=== PATIENT | female | born 1940 | race Caucasian/White ===

== ENCOUNTER 2020-11-15 18:36 | Inpatient (IN) | payer OTHER ==
[2020-11-15] MEDS ORDERED: ACETAMINOPHEN 500 MG TAB PO PRN (20:12)
[2020-11-15] MEDS ORDERED: ALBUTEROL INHALER 60 PUFF/8 GM IH PRN (20:18)
[2020-11-15] MEDS ORDERED: BENZONATATE 100 MG CAP PO PRN (20:18)
[2020-11-15] MEDS: METOPROLOL TAR 50 MG TAB PO SCH (21:29)
[2020-11-15] MEDS: METHYLPREDNISOLONE 40 MG INJ IV SCH (21:30)
[2020-11-15] MEDS: ALPRAZOLAM 0.25 MG TABLET PO PRN (21:30)
[2020-11-15 22:26] VITALS: BMI 29.5
[2020-11-15] MEDS ORDERED: ENOXAPARIN 80 MG/0.8 ML SQ SCH (23:00)
[2020-11-15] MEDS: MORPHINE 4 MG/ML SYR IV PRN (23:00)
--- NOTE | 2020-11-16 02:06 | P.HP ---
Certification for Inpatient Patient admitted to: Inpatient With expected LOS: >2 Midnights Patient will require the following post-hospital care: None Practitioner: I am a practitioner with admitting privileges, knowledge of patient current condition, hospital course, and medical plan of care. Services: Services provided to patient in accordance with Admission requirements found in Title 42 Section 412.3 of the Code of Federal Regulations Patient History Date of Service: 11/15/20 Reason for admission: COVID-19 pneumonia; atrial fibrillation; non ST-elevation [place] History of Present Illness: Patient is an 80-year-old female who was transferred from [facility] with COVID-19 pneumonia. Patient has gone into atrial fibrillation. Patient also with elevated troponin. They spoke with Cardiology and agreement to transfer patient to our hospital. Patient will continue on medication for rate control and continue with anti coagulation. At this time, will continue with steroids and supportive care with cough medication. Patient appears to be confused. Her baseline is that she is oriented to person place and time. Will need to get records from the hospital to see what her mentation has been altered. Allergies No Known Allergies Allergy (Verified 11/15/20 19:52) Home Medications: Amlodipine [Norvasc] 10 mg PO DAILY 11/15/20 Arformoterol Tartrate [Brovana] 15 mcg IH BID 11/15/20 Atorvastatin Calcium [Lipitor] 40 mg PO BEDTIME 11/15/20 Budesonide [Pulmicort] 2 puff IH BID 11/15/20 Hydrocodone 5/APAP 325 [[place] 5/325] 1 tab PO Q12HR PRN 11/15/20 Ipratropium/Albuterol Sulfate [Combivent Respimat 20-100 Mcg] 1 puff QID PRN 11/15/20 Levothyroxine Sodium [Synthroid] 75 mcg PO DAILY 11/15/20 Metoprolol Tartrate 50 mg PO DAILY 11/15/20 Montelukast [Singulair] 10 mg PO DAILY 11/15/20 Pantoprazole [Protonix Tab] 40 mg PO DAILY 11/15/20 Pregabalin [Lyrica] 100 mg PO TID 11/15/20 Rivaroxaban [Xarelto] 10 mg PO DAILY 11/15/20 Umeclidinium [place] [Incruse Ellipta] 1 puff DAILY 11/15/20 - Past Medical/Surgical History -: Hypertension -: COPD -: Hypothyroidism -: Heart Failure -: Chronic back pain -: Covid -: Lung Cancer Past Surgical History: Unable to obtain - Family History Father Family History: Reviewed- Non-Contributory - Social History Smoking Status: Unknown if ever smoked Alcohol use: No CD- Drugs: No Place of Residence: Home Review of Systems 10-point ROS is otherwise unremarkable Physical Examination - Vital Signs Temperature: 96.8 F Blood Pressure: 131/64 Pulse: 71 Respirations: 16 Pulse Ox (%): 100 - Physical Exam General: Alert, In no apparent distress, Confused HEENT: Atraumatic, PERRLA, Mucous membr. moist/pink, EOMI, Sclerae nonicteric Neck: Supple, 2+ carotid pulse no bruit, No LAD, Without JVD or thyroid abnormality Respiratory: Clear to auscultation bilaterally, Normal air movement Cardiovascular: Regular rate/rhythm, Normal S1 S2, Systolic murmur Gastrointestinal: Normal bowel sounds, Soft and benign, Non-distended, No tenderness Musculoskeletal: No clubbing, No swelling, No tenderness Integumentary: No rashes Neurological: Sensation intact, Cranial nerves 3-12 intact, Abnormal gait, Abnormal speech, Abnormal strength - Studies Laboratory Data (last 24 hrs) 11/15/20 21:21: Troponin I 0.51 H* Assessment & Plan - Problems (Diagnosis) (1) Altered mental status Current Visit: Yes Status: Acute (2) Pneumonia due to COVID-19 virus Current Visit: Yes Status: Acute (3) Hypoxemia Current Visit: Yes Status: Acute (4) Atrial fibrillation with rapid ventricular response Current Visit: Yes Status: Acute (5) Non-STEMI (non-ST elevated myocardial infarction) Current Visit: Yes Status: Acute (6) History of CHF (congestive heart failure) Current Visit: Yes Status: Acute (7) Hypothyroidism Current Visit: Yes Status: Acute (8) History of lung cancer Current Visit: Yes Status: Acute - Plan 1. Continue with IV steroids 2. Monitor inflammatory markers 3. Repeat chest x-ray 4. O2 per protocol 5. Pulmonary and cardiology consultation 6. Continue cardiac meds and medication for rate control 7. CT of the brain 8. GI and DVT prophylaxis Discharge Plan: Home Plan to discharge in: Greater than 2 days - Advance Directives Does patient have a Living Will: No Does patient have a Durable POA for Healthcare: No - Code Status/Comfort Care Code Status Assessed: Yes Code Status: Full Code Critical Care: No Time Spent Managing PTS Care (In Minutes): 45
[2020-11-16] MEDS: MORPHINE 4 MG/ML SYR IV PRN ×2 (04:35→21:17)
[2020-11-16] MEDS ORDERED: LORazepam 2 MG/ML VIAL IV ONE ×3 (05:09→19:00)
[2020-11-16 06:31] LABS: C-Reactive Protein 11.7 mg/L (<3.00); Ferritin 242.9 ng/mL (8-388); Potassium 3.2 mmol/L (3.5-5.1); Troponin I 0.37 ng/mL (0.0-0.045)
[2020-11-16 06:34] LABS: Absolute Lymphocytes (CBC) 0.3 K/uL (0.7-4.9); Basophils % 0.1 % (0-1.3); Hematocrit 38.2 % (36.0-45.0); Lymphocytes % 3.3 % (15.3-44.8); MPV 11.4 fL (7.6-11.3); RBC Red Blood Cell Count 4.34 M/uL (3.86-4.86)
[2020-11-16] MEDS: METOPROLOL TAR 50 MG TAB PO SCH (07:36)
[2020-11-16] MEDS: ASPIRIN EC 81 MG TAB PO SCH (07:36)
[2020-11-16] MEDS: METHYLPREDNISOLONE 40 MG INJ IV SCH ×2 (07:37→19:29)
[2020-11-16 08:39] LABS: Blood Morphology Comment NOT SEEN (NOT SEEN); Platelet Estimate ADEQ; White Blood Cell Scan OK (OK)
[2020-11-16] MEDS ORDERED: ENOXAPARIN 80 MG/0.8 ML SQ SCH (09:00)
--- NOTE | 2020-11-16 10:07 | RAD REPORT ---
EXAM DESCRIPTION: RAD - Chest Single View - 11/16/2020 7:03 am CLINICAL HISTORY: pneumonia Chest pain. COMPARISON: Chest Pa And Lat (2 Views) dated 03/21/2018; Chest Pa And Lat (2 Views) dated 10/02/2016; CHEST PA AND LAT 2 VIEW dated 05/16/2012; CHEST SINGLE VIEW dated 09/14/2011 FINDINGS: Portable technique limits examination quality. Moderate elevation of the right hemidiaphragm noted, chronic. Moderate patchy bilateral alveolar lung opacities are seen likely representing bilateral pneumonia. Fullness in the right peritracheal strip e region is likely attributable portable technique and mild rotation of the patient, however CT chest followup would be useful for further evaluation. Cardiac size is normal.
[2020-11-16] MEDS ORDERED: WATER FOR INJ,STERILE 10 ML IM PRN (11:05)
--- NOTE | 2020-11-16 11:13 | P.PN ---
Subjective Date of Service: 11/16/20 Chief Complaint: COVID-19 pneumonia; atrial fibrillation; non ST-elevation [place] Subjective: Worsening (Patient is very agitated and trying to get out of bed.) Review of Systems is unable to be obtained Physical Examination - Vital Signs Temperature: 97 F Blood Pressure: 128/103 Pulse: 83 Respirations: 18 Pulse Ox (%): 99 - Physical Exam General: Moderate distress, Delirious HEENT: Atraumatic, PERRLA, EOMI Neck: Supple, JVD not distended Respiratory: Clear to auscultation bilaterally, Normal air movement Cardiovascular: Regular rate/rhythm, Normal S1 S2 Gastrointestinal: Normal bowel sounds, No tenderness Musculoskeletal: No tenderness Integumentary: No rashes Neurological: Normal speech, Normal tone, Normal affect Lymphatics: No axilla or inguinal lymphadenopathy - Studies Laboratory Data (last 24 hrs) 11/16/20 05:40: Sodium Cancelled, Potassium Cancelled, BUN Cancelled, Creatinine Cancelled, Glucose Cancelled 11/16/20 05:40: Sodium 146 H, Potassium 3.2 L, BUN 28 H, Creatinine 0.76, Glucose 153 H, Troponin I 0.37 H, Triglycerides 159 H, Cholesterol 103, HDL Cholesterol 52, Cholesterol/HDL Ratio 1.98 11/16/20 05:40: WBC 9.70, Hgb 12.4, Hct 38.2, Plt Count 192 11/15/20 21:21: Troponin I 0.51 H* Assessment & Plan - Problems (Diagnosis) (1) Altered mental status Current Visit: Yes Status: Acute Plan: Patient was too agitated for the CT. Weather this is covid encephalopathy or a CVA. Will start her on geodan and haldol. Get the CT scan. If there is no acute process in her brain. We can anticoagulate. Then standard covid treatm ent. Qualifiers: Altered mental status type: delirium Qualified Code(s): R41.0 - Disorientation, unspecified (2) Atrial fibrillation with rapid ventricular response Current Visit: Yes Status: Acute Plan: Will restart her metoprolol. She may have had a mild leak of troponins which are trending downward. Will restart her xarelto after the CT. Make sure she is not having any acute bleeds in her brain. (3) Non-STEMI (non-ST elevated myocardial infarction) Current Visit: Yes Status: Acute Plan: Patient has decreasing troponins. Considering this is a patient with Heart failure. 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 However will wait for cardiology's input. (4) Pneumonia due to COVID-19 virus Current Visit: Yes Status: Acute Plan: Continue steroids and oxygen. Discharge Plan: Home Plan to discharge in: Greater than 2 days - Code Status/Comfort Care Code Status Assessed: No Physician Review: Patient Assessed, Agree with Above Assessment and Plan Critical Care: No Time Spent Managing Pts Care (In Minutes): 25
--- NOTE | 2020-11-16 11:14 | P.CNS ---
Date of Consult: 11/16/20 Reason for Consult: Coronavirus pneumonia Chief Complaint: COVID-19 pneumonia; atrial fibrillation; non ST-elevation [place] History of Present Illness: Patient is 80 years of age patient is 80 years of age transferred from [facility] with coronavirus pneumonia also developed A. fib elevated troponins planes of cough appears to be confused agitated Allergies No Known Allergies Allergy (Verified 11/15/20 19:52) Home Medications: Amlodipine [Norvasc] 10 mg PO DAILY 11/15/20 Arformoterol Tartrate [Brovana] 15 mcg IH BID 11/15/20 Atorvastatin Calcium [Lipitor] 40 mg PO BEDTIME 11/15/20 Budesonide [Pulmicort] 2 puff IH BID 11/15/20 Hydrocodone 5/APAP 325 [[place] 5/325] 1 tab PO Q12HR PRN 11/15/20 Ipratropium/Albuterol Sulfate [Combivent Respimat 20-100 Mcg] 1 puff QID PRN 11/15/20 Levothyroxine Sodium [Synthroid] 75 mcg PO DAILY 11/15/20 Metoprolol Tartrate 50 mg PO DAILY 11/15/20 Montelukast [Singulair] 10 mg PO DAILY 11/15/20 Pantoprazole [Protonix Tab] 40 mg PO DAILY 11/15/20 Pregabalin [Lyrica] 100 mg PO TID 11/15/20 Rivaroxaban [Xarelto] 10 mg PO DAILY 11/15/20 Umeclidinium [place] [Incruse Ellipta] 1 puff DAILY 11/15/20 - Past Medical/Surgical History -: Hypertension -: COPD -: Hypothyroidism -: Heart Failure -: Chronic back pain -: Covid -: Lung Cancer - Family History Father Family History: Reviewed- Non-Contributory - Social History Alcohol use: No CD- Drugs: No Place of Residence: Home Review of Systems is unable to be obtained Physical Examination Temp Pulse Resp BP Pulse Ox 97 F 83 18 128/103 H 99 11/16/20 08:00 11/16/20 08:00 11/16/20 08:00 11/16/20 08:00 11/16/20 08:00 General: Delirious Laboratory Data (last 24 hrs) 11/16/20 05:40: Sodium Cancelled, Potassium Cancelled, BUN Cancelled, Creatinine Cancelled, Glucose Cancelled 11/16/20 05:40: Sodium 146 H, Potassium 3.2 L, BUN 28 H, Creatinine 0.76, Glucose 153 H, Troponin I 0.37 H, Triglycerides 159 H, Cholesterol 103, HDL Cholesterol 52, Cholesterol/HDL Ratio 1.98 11/16/20 05:40: WBC 9.70, Hgb 12.4, Hct 38.2, Plt Count 192 11/15/20 21:21: Troponin I 0.51 H* - Problems (1) Pneumonia due to COVID-19 virus Current Visit: Yes Status: Acute Plan: Patient is 80 years of age admitted patient is 80 years of age transferred from [facility] with coronavirus pneumonia altered mental status agitation delirious probably has underlying coronavirus encephalopathy in addition patient also has EKG changes elevated troponin most likely elevated troponin vital signs are stable currently on 2 L of nasal cannula oxygen patient CRP is low will patient CRP is low will not qualify for Barcitinib
[2020-11-16] MEDS: HALOPERIDOL LACT 5 MG/ML INJ IV PRN ×2 (11:19→19:28)
--- NOTE | 2020-11-16 13:33 | RAD REPORT ---
EXAM DESCRIPTION: CT - Head Brain Wo Cont - 11/16/2020 1:13 pm CLINICAL HISTORY: AMS Headache, drowsiness COMPARISON: HEAD BRAIN W O CONTRAST dated 09/14/2011 TECHNIQUE: All CT scans are performed using dose optimization technique as appropriate and may inclu de automated exposure control or mA/KV adjustment according to patient size. FINDINGS: No intracranial hemorrhage, hydrocephalus or extra-axial fluid collection.Mild periventric ular chronic microvascular ischemic changes.No areas of brain edema or evidence of midline shift. The paranasal sinuses and mastoids are clear. The calvarium is intact. IMPRESSION: No acute intracranial abnormality.
[2020-11-16] MEDS: PREGABALIN 50 MG CAP PO SCH ×2 (14:00→19:28)
--- NOTE | 2020-11-16 16:04 | CON ---
Date of Consultation: 11/16/2020 Reason For Consultation: Elevated troponin. History Of Present Illness: This 80-year-old female transferred from [facility] for COVID pneum onia, and she had atrial fibrillation with rapid ventricular response at 1 point. Troponin was mildl y elevated over there, and I was contacted by the hospitalist and accepted to consult on the patient. She apparently has significant confusion and very poor historian, unable to get a good history from her. Most part of this information is from the patient's chart. Past Medical History: Hypertension, COPD, hypothyroidism, congestive heart failure, lung cancer. Medications: Refer reconciliation sheet for detailed list. Allergies: NO KNOWN DRUG ALLERGIES. Family History: Negative for premature coronary artery disease. Social History: Unknown. Review of Systems: All systems reviewed and they were negative except as mentioned in the HPI. Physical Examination: Vital Signs: Temperature is 96.8, pulse 92, breathing at 18, blood pressure 148/78, saturating 98%. General: She is an elderly female, in no apparent distress. Head and Neck: Pupils are equal, reactive to light. Intact eye movements. No JVD. No cervical lym phadenopathy. Neck: Supple. Thyroid is not enlarged. Lungs: Rhonchi bilaterally. No accessory muscle use or muscle retraction. Heart: Irregularly irregular. No extra sounds. Abdomen: Soft, nontender. Bowel sounds positive. No organomegaly. No masses or hernia. No rigidi ty or rebound. Extremities: No clubbing, cyanosis. Intact pulses. Skin: No rashes. Neurologic: Alert, but confused. No focal deficits appreciated. Lymph Nodes: No cervical or axillary lymphadenopathy. Investigations: Troponin is 0.51, then 0.37. Creatinine 0.76. White blood cell count is 9.7, hemog lobin 12.4. EKG without acute specific abnormalities. Impression And Recommendation: Elevated troponin, probably due to demand ischemia. However, I recom mend anticoagulation with Lovenox therapeutic dose and baby aspirin 81 mg and obtain echocardiogram o n Wednesday, and once the COVID condition clears completely, then Lexiscan stress test to further evalua te. Thank you for the consult. /BERNABE Voice ID: [id number] Report ID: [id number]
[2020-11-16] MEDS: ATORVASTATIN 40 MG TAB PO SCH (19:28)
[2020-11-16] MEDS: RIVAROXABAN 10 MG TABLET PO SCH (19:28)
[2020-11-16] MEDS: ALPRAZOLAM 0.25 MG TABLET PO PRN (21:19)
[2020-11-17] MEDS: HALOPERIDOL LACT 5 MG/ML INJ IV PRN ×3 (00:15→17:13)
[2020-11-17] MEDS: MORPHINE 4 MG/ML SYR IV PRN ×2 (02:00→22:10)
[2020-11-17] MEDS: LEVOTHYROXINE SOD 0.075 MG TAB PO SCH (08:43)
[2020-11-17] MEDS: ASPIRIN EC 81 MG TAB PO SCH (08:43)
[2020-11-17] MEDS: RIVAROXABAN 10 MG TABLET PO SCH (08:43)
[2020-11-17] MEDS: METOPROLOL TAR 50 MG TAB PO SCH (08:43)
[2020-11-17] MEDS: METHYLPREDNISOLONE 40 MG INJ IV SCH ×2 (08:43→22:10)
[2020-11-17] MEDS: PANTOPRAZOLE 40MG TABLET PO SCH (08:43)
[2020-11-17] MEDS: PREGABALIN 50 MG CAP PO SCH ×3 (08:43→22:11)
--- NOTE | 2020-11-17 10:43 | P.PN ---
Subjective Date of Service: 11/17/20 Chief Complaint: COVID-19 pneumonia; atrial fibrillation; non ST-elevation [place] Subjective: No new changes Review of Systems is unable to be obtained Physical Examination - Vital Signs Temperature: 97.1 F Blood Pressure: 154/90 Pulse: 97 Respirations: 18 Pulse Ox (%): 99 - Physical Exam General: Alert, In no apparent distress HEENT: Atraumatic, PERRLA, EOMI Neck: Supple, JVD not distended Respiratory: Clear to auscultation bilaterally, Normal air movement Cardiovascular: Regular rate/rhythm, Normal S1 S2 Gastrointestinal: Normal bowel sounds, No tenderness Musculoskeletal: No tenderness Integumentary: No rashes Neurological: Normal speech, Normal tone, Normal affect Lymphatics: No axilla or inguinal lymphadenopathy Assessment & Plan - Problems (Diagnosis) (1) Altered mental status Current Visit: Yes Status: Acute Plan: Patient was too agitated for the CT. Weather this is covid encephalopathy or a CVA. Will start her on geodan and haldol. Get the CT scan. If there is no acute process in her brain. We can anticoagulate. Then standard covid treatment. 11/17 Patient is still altered. continue supportive Qualifiers: Altered mental status type: delirium Qualified Code(s): R41.0 - Disorientation, unspecified (2) Atrial fibrillation with rapid ventricular response Current Visit: Yes Status: Acute Plan: Will restart her metoprolol. She may have had a mild leak of troponins which are trending downward. Will restart her xarelto after the CT. Make sure she is not having any acute bleeds in her brain. (3) Non-STEMI (non-ST elevated myocardial infarction) Current Visit: Yes Status: Acute Plan: Patient has decreasing troponins. Considering this is a patient with Heart failure. May be able to medically manage rather than taking her to the builder's labourer. However will wait for cardiology's input. (4) Pneumonia due to COVID-19 virus Current Visit: Yes Status: Acute Plan: Continue steroids and oxygen. Discharge Plan: Home - Code Status/Comfort Care Code Status Assessed: No Physician Review: Patient Assessed, Agree with Above Assessment and Plan Critical Care: No Time Spent Managing Pts Care (In Minutes): 20
[2020-11-17] MEDS: ZIPRASIDONE MESYLA 20 MG/VIAL IM PRN (18:17)
[2020-11-17] MEDS: ATORVASTATIN 40 MG TAB PO SCH (21:00)
[2020-11-18] MEDS: HALOPERIDOL LACT 5 MG/ML INJ IV PRN ×2 (00:02→19:57)
[2020-11-18] MEDS: MORPHINE 4 MG/ML SYR IV PRN (04:31)
[2020-11-18 06:04] LABS: Absolute Lymphocytes (CBC) 0.2 K/uL (0.7-4.9); Basophils % 0.6 % (0-1.3); Hematocrit 26.4 % (36.0-45.0); Lymphocytes % 1.3 % (15.3-44.8); MPV 11.5 fL (7.6-11.3)
[2020-11-18 06:19] LABS: Potassium 3.5 mmol/L (3.5-5.1)
--- NOTE | 2020-11-18 06:27 | P.PN ---
Subjective Date of Service: 11/18/20 Chief Complaint: COVID-19 pneumonia; atrial fibrillation; non ST-elevation [place] Subjective: Other (Patient remains altered.) Physical Examination - Vital Signs Temperature: 96.9 F Blood Pressure: 125/57 Pulse: 115 Respirations: 20 Pulse Ox (%): 95 - Studies Laboratory Data (last 24 hrs) 11/18/20 05:47: Sodium 149 H, Potassium 3.5, BUN 46 H, Creatinine 0.82, Glucose 164 H 11/18/20 05:47: WBC 16.80 H D, Hgb 8.6 L D, Hct 26.4 L D, Plt Count 197 Assessment & Plan Discharge Plan: Home Plan to discharge in: Greater than 2 days Physician Review Additional Text: COVID: Positive CT head: COMPARISON: HEAD BRAIN W O CONTRAST dated 09/14/2011 TECHNIQUE: All CT scans are performed using dose optimization technique as appropriate and may include automated exposure control or mA/KV adjustment according to patient size. FINDINGS: No intracranial hemorrhage, hydrocephalus or extra-axial fluid collection.Mild periventricular chronic microvascular ischemic changes.No areas of brain edema or evidence of midline shift. The paranasal sinuses and mastoids are clear. The calvarium is intact. IMPRESSION: No acute intracranial abnormality. CXR: COMPARISON: Chest Pa And Lat (2 Views) dated 03/21/2018; Chest Pa And Lat (2 Views) dated 10/02/2016; CHEST PA AND LAT 2 VIEW dated 05/16/2012; CHEST SINGLE VIEW dated 09/14/2011 FINDINGS: Portable technique limits examination quality. Moderate elevation of the right hemidiaphragm noted, chronic. Moderate patchy bilateral alveolar lung opacities are seen likely representing bilateral pneumonia. Fullness in the right peritracheal stripe region is likely attributable portable technique and mild rotation of the patient, however CT chest followup would be useful for further evaluation. Cardiac size is normal. Physical Exam: GENERAL: Patient remains altered. Not oriented to time and place. VITAL SIGNS: Reviewed HEENT: Neck supple LUNGS: Clear to auscultation. No crackles or wheezes are heard. Currently on room air HEART: A. fib rate controlled ABDOMEN: Soft, nontender, and nondistended. Positive bowel sounds. No hepatosplenomegaly was noted. EXTREMITIES: Without any cyanosis, clubbing, rash, lesions or peripheral edema. NEUROLOGIC: Patient remains with altered mental status SKIN: Normal color, turgor and temperature. No ulcerations or rashes noted. Impression: Acute encephalopathy suspect Covid encephalopathy complicated with Covid pneumonia with hypoxia Atrial fibrillation with RVR Elevated troponin likely ischemic demand Hypertension Hypothyroidism History of lung cancer Hypernatremia Plan: Acute encephalopathy suspect Covid encephalopathy complicated with Covid pneumonia with hypoxia: Patient remains altered at this time. Continue with medication for agitation. Patient failed swallow evaluation. Will keep the patient n.p.o. at this time. Speech to evaluate swallowing. Cardiology has evaluated patient. Elevated troponin likely ischemic demand. Will obtain echoc ardiogram to further evaluate. Once the patient is medically stable consider inpatient versus outpatient cardiac stress test. Will monitor closely. Pulmonology continues with IV steroids and Covid pneumonia treatment. Patient on room air. Atrial fibrillation with RVR: Overall stable. Continue with metoprolol. Patient on Lovenox. Elevated troponin likely ischemic demand: Patient seen and evaluated by cardiology. Patient to get echocardiogram. Consider outpatient versus inpatient cardiac stress test once medically stable. Hypertension: Continue metoprolol Hypothyroidism: Continue medication History of lung cancer: Overall stable. Hypernatremia: Will start D5W. Will monitor and adjust IV fluids. CODE STATUS: Full code DVT prophylaxis: Lovenox Advanced care [id number] minutes: Need to find appropriate contact information to family. Tried the 2 numbers on file without any success. Will have nurse look out for family. Time Spent Managing Pts Care (In Minutes): 55
[2020-11-18 06:45] LABS: Blood Morphology Comment NOT SEEN (NOT SEEN); Platelet Estimate ADEQ; White Blood Cell Scan OK (OK)
[2020-11-18] MEDS: METHYLPREDNISOLONE 40 MG INJ IV SCH ×2 (08:22→19:58)
[2020-11-18] MEDS: RIVAROXABAN 10 MG TABLET PO SCH (08:22)
[2020-11-18] MEDS: LEVOTHYROXINE SOD 0.075 MG TAB PO SCH (08:26)
[2020-11-18] MEDS: PANTOPRAZOLE 40MG TABLET PO SCH (08:27)
[2020-11-18] MEDS: ASPIRIN EC 81 MG TAB PO SCH (08:27)
[2020-11-18] MEDS: METOPROLOL TAR 50 MG TAB PO SCH (08:27)
[2020-11-18] MEDS: PREGABALIN 50 MG CAP PO SCH (08:28)
[2020-11-18 09:15] LABS: Hematocrit 27.5 % (36.0-45.0)
--- NOTE | 2020-11-18 12:29 | P.PN ---
Subjective Date of Service: 11/18/20 Chief Complaint: COVID-19 pneumonia; atrial fibrillation; non ST-elevation [place] No change patient is delirious Review of Systems is unable to be obtained Physical Examination - Vital Signs Temperature: 97.6 F Blood Pressure: 138/62 Pulse: 109 Respirations: 24 Pulse Ox (%): 92 - Physical Exam General: Unresponsive - Studies Laboratory Data (last 24 hrs) 11/18/20 08:52: Hgb 9.0 L, Hct 27.5 L 11/18/20 05:47: Sodium 149 H, Potassium 3.5, BUN 46 H, Creatinine 0.82, Glucose 164 H 11/18/20 05:47: WBC 16.80 H D, Hgb 8.6 L D, Hct 26.4 L D, Plt Count 197 Assessment & Plan - Problems (Diagnosis) (1) Pneumonia due to COVID-19 virus Current Visit: Yes Status: Acute Plan: Patient is Covid encephalopathy not eating and drinking much we will try a Dobbhoff tube she is able to keep it in for 24 hours we will start tube feeds patient has hyponatremia abnormal renal function start on high-dose thiamine saturations satisfactory Physician Review: Patient Assessed, Agree with Above Assessment and Plan
[2020-11-18] MEDS ORDERED: SODIUM CHLORIDE 0.9% 10ML INJ IV PRN (13:00)
[2020-11-18] MEDS: D5W 1,000 ML IV SCH (14:02)
[2020-11-18] MEDS: THIAMINE 200 MG/2 ML INJ IVP SCH ×2 (14:02→19:58)
--- NOTE | 2020-11-18 16:22 | ECHO ---
HEIGHT: 5 ft 0 in WEIGHT: 151 lb 0 oz DATE OF STUDY: 11/18/[address]: Heladio Hurtado MD 2-DIMENSIONAL: YES M.MODE: YES DOPPLER: YES COLOR FLOW: YES TDS: YES PORTABLE: NO DEFINITY: NO BUBBLE STUDY: NO DIAGNOSIS: ELEVATED TROPONIN CARDIAC HISTORY: CATHERIZATION: SURGERY: PROSTHETIC VALVE: PACEMAKER: MEASUREMENTS (cm) DIASTOLIC (NORMALS) SYSTOLIC (NORMALS) IVSd (0.6-1.2) LA Diam (1.9-4.0) LVEF 55-60% LVIDd (3.5-5.7) LVIDs (2.0-3.5) %FS % LVPWd (0.6-1.2) Ao Diam (2.0-3.7) 2 DIMENSIONAL ASSESSMENT: RIGHT ATRIUM: LEFT ATRIUM: RIGHT VENTRICLE: LEFT VENTRICLE: TRICUSPID VALVE: MITRAL VALVE: PULMONIC VALVE: AORTIC VALVE: PERICARDIAL EFFUSION: AORTIC ROOT: LEFT VENTRICULAR WALL MOTION: LIMITED STUDY. DOPPLER/COLOR FLOW: COMMENTS: VERY LIMITED STUDY. OVERALL LEFT VENTRICULAR EJECTION FRACTION APPEARS NORMAL 55-60%. MILD TRICUSPID AND MITRAL REGURGITATION. TECHNOLOGIST: Tamara FORREST
[2020-11-18] MEDS: ENOXAPARIN 40 MG/0.4 ML SQ SCH (16:39)
[2020-11-18] MEDS: CEFTRIAXONE 1 GM/NS 50 ML 1 GM/50 ML BAG IV SCH (17:06)
[2020-11-18 19:30] LABS: Urine Appearance CLEAR (Clear); Urine Bilirubin NEGATIVE (Negative); Urine Blood 1+ (Negative); Urine Color YELLOW (Yellow); Urine Glucose TRACE (Negative); Urine Protein 1+ (Negative); Urine Urobilinogen 0.2 mg/dL (0.2-1.0)
[2020-11-18 19:47] LABS: Urine Microscopic Reflex ORDER UMIC
[2020-11-18] MEDS: ATORVASTATIN 40 MG TAB PO SCH (19:58)
[2020-11-18 20:02] LABS: Urine Bacteria <20 /HPF (<20); Urine RBC <5 /HPF (NONE SEEN)
[2020-11-19] MEDS: D5W 1,000 ML IV SCH ×2 (02:20→12:10)
[2020-11-19 03:53] LABS: Absolute Lymphocytes (CBC) 0.2 K/uL (0.7-4.9); Basophils % 0.2 % (0-1.3); Hematocrit 25.1 % (36.0-45.0); Lymphocytes % 1.1 % (15.3-44.8); MPV 11.9 fL (7.6-11.3); RBC Red Blood Cell Count 2.83 M/uL (3.86-4.86)
[2020-11-19 04:37] LABS: ALT/SGPT 56 U/L (12-78); AST/SGOT 64 U/L (15-37); Alkaline Phosphatase 58 U/L (45-117); BUN Blood Urea Nitrogen 31 mg/dL (7-18); Bicarbonate 37 mmol/L (21-32); Bilirubin Total 1.1 mg/dL (0.2-1.0); Ferritin 247.4 ng/mL (8-388); Glucose Level 199 mg/dL (74-106); Magnesium 2.3 mg/dL (1.8-2.4); Protein, Total 6.2 g/dL (6.4-8.2); Sodium Level 146 mmol/L (136-145)
[2020-11-19 04:38] LABS: Potassium 2.6 mmol/L (3.5-5.1)
[2020-11-19] MEDS: KCL 20 MEQ/100 mL IVPB 20 MEQ/100 ML BAG IV SCH ×2 (05:11→08:59)
[2020-11-19] MEDS: LEVOTHYROXINE SODIUM 100 MCG VIAL IV SCH (06:00)
--- NOTE | 2020-11-19 06:27 | P.PN ---
Subjective Date of Service: 11/19/20 Chief Complaint: COVID-19 pneumonia; atrial fibrillation; non ST-elevation [place] Subjective: Other (Less confusion noted. Patient on room air.) Physical Examination - Vital Signs Temperature: 97.9 F Blood Pressure: 147/63 Pulse: 101 Respirations: 20 Pulse Ox (%): 91 - Studies Laboratory Data (last 24 hrs) 11/19/20 : Sodium Cancelled, Potassium Cancelled, BUN Cancelled, Creatinine Cancelled, Glucose Cancelled 11/19/20 03:19: Sodium 146 H, Potassium 2.6 L*, BUN 31 H, Creatinine 0.61, Glucose 199 H, Magnesium 2.3, Total Bilirubin 1.1 H, AST 64 H, ALT 56, Alkaline Phosphatase 58 11/19/20 03:19: WBC 14.20 H D, Hgb 8.1 L, Hct 25.1 L, Plt Count 196 11/18/20 08:52: Hgb 9.0 L, Hct 27.5 L 11/18/20 05:47: WBC 16.80 H D, Hgb 8.6 L D, Hct 26.4 L D, Plt Count 197 Microbiology Data (last 24 hrs): 11/18/20 17:34 Blood - Blood Anaerobic Blood Culture - Final 11/18/20 17:42 Blood - Blood Anaerobic Blood Culture - Final Assessment & Plan Discharge Plan: Home Plan to discharge in: Greater than 2 days Physician Review Additional Text: COVID: Positive CT head: COMPARISON: HEAD BRAIN W O CONTRAST dated 09/14/2011 TECHNIQUE: All CT scans are performed using dose optimization technique as appropriate and may include automated exposure control or mA/KV adjustment according to patient size. FINDINGS: No intracranial hemorrhage, hydrocephalus or extra-axial fluid collection.Mild periventricular chronic microvascular ischemic changes.No areas of brain edema or evidence of midline shift. The paranasal sinuses and mastoids are clear. The calvarium is intact. IMPRESSION: No acute intracranial abnormality. CXR: COMPARISON: Chest Pa And Lat (2 Views) dated 03/21/2018; Chest Pa And Lat (2 Views) dated 10/02/2016; CHEST PA AND LAT 2 VIEW dated 05/16/2012; CHEST SINGLE VIEW dated 09/14/2011 FINDINGS: Portable technique limits examination quality. Moderate elevation of the right hemidiaphragm noted, chronic. Moderate patchy bilateral alveolar lung opacities are seen likely representing bilateral pneumonia. Fullness in the right peritracheal stripe region is likely attributable portable technique and mild rotation of the patient, however CT chest followup would be useful for further evaluation. Cardiac size is normal. Breast US: COMPARISON: None FINDINGS: Retroareolar and four-quadrant whole right breast sonography performed. The examination was limited. The patient was unable to fully cooperate with the examination. In the retroareolar region of the right breast a 4-5 centimeter area of heterogeneous mostly hypoechoic tissue is seen. This is not a typical appearance for the retroareolar tissues. A clearly defined mass or drainable fluid collection was not seen. Currently the findings are nonspecific. Infectious/inflammatory process is most likely. This does not currently appear to be a drainable collection. Breast malignant etiology cannot be excluded. IMPRESSION: Nonspecific 4-5 cm area of heterogeneous hypoechoic tissue retroareolar right breast. Infectious/inflammatory etiology is favored. Breast malignancy etiology cannot be excluded. A drainable fluid collection is not currently identified. Follow up CXR 11/19/2020: COMPARISON: Portable November 16 TECHNIQUE: AP portable chest image was obtained 11/19/2020 5:58 am . FINDINGS: Is been partial clearing of the airspace infiltrates seen on the prior examination. Minimal infiltrate remains. Right hemidiaphragm is still elevated. Mediastinum is distorted by rotation and is not accurately evaluated. Heart and vasculature are normal. No measurable pleural effusion and no pneumothorax. No acute bony abnormality seen. No acute aortic findings suspected. IMPRESSION: Partial clearing of the pneumonia findings since November 16. ECHO: MEASUREMENTS (cm) DIASTOLIC (NORMALS) SYSTOLIC (NORMALS) IVSd (0.6-1.2) LA Diam (1.9- 4.0) LVEF 55-60% LVIDd (3.5-5.7) LVIDs (2.0-3.5) %FS % LVPWd (0.6-1.2) Ao Diam (2.0-3.7) 2 DIMENSIONAL ASSESSMENT: RIGHT ATRIUM: LEFT ATRIUM: RIGHT VENTRICLE: LEFT VENTRICLE: TRICUSPID VALVE: MITRAL VALVE: PULMONIC VALVE: AORTIC VALVE: PERICARDIAL EFFUSION: AORTIC ROOT: LEFT VENTRICULAR WALL MOTION: LIMITED STUDY. DOPPLER/COLOR FLOW: COMMENTS: VERY LIMITED STUDY. OVERALL LEFT VENTRICULAR EJECTION FRACTION APPEARS NORMAL 55-60%. MILD TRICUSPID AND MITRAL REGURGITATION. Physical Exam: GENERAL: Patient remains altered. Not oriented to time and place. VITAL SIGNS: Reviewed HEENT: Neck supple LUNGS: Clear to auscultation. No crackles or wheezes are heard. Currently on room air HEART: A. fib rate controlled ABDOMEN: Soft, nontender, and nondistended. Positive bowel sounds. No hepatosplenomegaly was noted. EXTREMITIES: Without any cyanosis, clubbing, rash, lesions or peripheral edema. NEUROLOGIC: Patient remains with altered mental status SKIN: Normal color, turgor and temperature. No ulcerations or rashes noted. Impression: Acute encephalopathy suspect Covid encephalopathy complicated with Covid pneumonia with hypoxia Atrial fibrillation with RVR Elevated troponin likely ischemic demand Hypertension Hypothyroidism History of lung cancer Hypernatremia Right breast ecchymosis Leukocytosis likely related to above Acute anemia etiology unknown Plan: Acute encephalopathy suspect Covid encephalopathy complicated with Covid pneumonia with hypoxia: Patient appears to be less confused today. Currently on room air. Patient remains with atrial fibrillation. Patient failed swallow study as the patient still had altered mental status changes. Patient still high risk for aspiration. Speech recommends n.p.o. at this time. Will provide Dobbhoff to provide nutrition. Continue IV fluids. Continue IV steroids and treatment. Blood and urine culture obtained. Patient on IV Rocephin due to leukocytosis. Continue to monitor and reassess. Aspiration precaution in place. Patient also had some ecchymosis to the right breast. Ultrasound showed nonspecific 4 x 5 cm heterogeneous hypoechoic tissue to the right breast. No drainable fluid noted. We will monitor this closely. Await recommendations by pulmonology and cardiology. Atrial fibrillation with RVR: Overall stable. Continue with metoprolol. Patient on Lovenox. Elevated troponin likely ischemic demand: Patient seen and evaluated by card iology. Patient to get echocardiogram. Consider outpatient versus inpatient cardiac stress test once medically stable. Hypertension: Continue metoprolol Hypothyroidism: Continue levothyroxine History of lung cancer: Overall stable. Hypernatremia: Continue D5W. Will monitor and adjust IV fluids. Right breast ecchymosis: Ultrasound shows nonspecific 4 x 5 cm heterogeneous hypoechoic tissue to the right breast. No drainable fluid noted. Monitor this closely. Leukocytosis likely related to above: Continue with above plan of care. Patient on Rocephin to cover for opportunistic infection. Blood and urine culture obtained. Acute anemia etiology unknown: We will monitor this closely. Recheck hemoglobin later today. Check iron and B12 studies. CODE STATUS: Full code DVT prophylaxis: Lovenox Advanced care [id number] minutes: Will discuss with family on plan of care. Time Spent Managing Pts Care (In Minutes): 55
--- NOTE | 2020-11-19 06:55 | RAD REPORT ---
EXAM DESCRIPTION: RAD - Chest Single View - 11/19/2020 5:58 am CLINICAL HISTORY: Follow-up Covidpneumonia COMPARISON: Portable November 16 TECHNIQUE: AP portable chest image was obtained 11/19/2020 5:58 am . FINDINGS: Is been partial clearing of the airspace infiltrates seen on the prior examination. Minima l infiltrate remains. Right hemidiaphragm is still elevated. Mediastinum is distorted by rotation and is not accurately evaluated. Heart and vasculature are normal. No measurable pleural effusion and no pneumothorax. No acute bony abnormality seen. No acute aortic findings suspected. IMPRESSION: Partial clearing of the pneumonia findings since November 16.
[2020-11-19] MEDS: CEFTRIAXONE 1 GM/NS 50 ML 1 GM/50 ML BAG IV SCH (08:59)
[2020-11-19] MEDS: METOPROLOL TAR 50 MG TAB PO SCH (09:00)
[2020-11-19] MEDS: PANTOPRAZOLE 40 MG INJ IVP SCH (09:00)
[2020-11-19] MEDS: THIAMINE 200 MG/2 ML INJ IVP SCH ×2 (09:00→19:41)
[2020-11-19] MEDS: ASPIRIN EC 81 MG TAB PO SCH (09:00)
[2020-11-19] MEDS ORDERED: FOLIC ACID 5 MG/ML VIAL IVP SCH (09:00)
[2020-11-19] MEDS: METHYLPREDNISOLONE 40 MG INJ IV SCH ×2 (09:00→19:41)
--- NOTE | 2020-11-19 09:03 | RAD REPORT ---
EXAM DESCRIPTION: US - BREAST/AXILLA, COMPLETE - 11/19/2020 8:50 am CLINICAL HISTORY: Right breast pain, ecchymosis, nipple inversion COMPARISON: None FINDINGS: Retroareolar and four-quadrant whole right breast sonography performed. The examination wa s limited. The patient was unable to fully cooperate with the examination. In the retroareolar region of the right breast a 4-5 centimeter area of heterogeneous mostly hypoecho ic tissue is seen. This is not a typical appearance for the retroareolar tissues. A clearly defined m ass or drainable fluid collection was not seen. Currently the findings are nonspecific. Infectious/inflammatory process is most likely. This does not currently appear to be a drainable collection. Breast malignant etiology cannot be excluded. IMPRESSION: Nonspecific 4-5 cm area of heterogeneous hypoechoic tissue retroareolar right breast. Infectious/inflammatory etiology is favored. Breast malignancy etiology cannot be excluded. A drainable fluid collection is not currently identified.
[2020-11-19 09:16] LABS: BUN Blood Urea Nitrogen 30 mg/dL (7-18); Bicarbonate 37 mmol/L (21-32); Glucose Level 166 mg/dL (74-106); Sodium Level 147 mmol/L (136-145)
[2020-11-19] MEDS: FOLIC ACID 1 MG in NA CHLORIDE 0.9% 50 ML IV SCH (09:23)
[2020-11-19] MEDS ORDERED: FUROSEMIDE 20 MG/ 2ML VIAL IV ONE (11:02)
[2020-11-19] MEDS ORDERED: JEVITY 1.2 CAL LIQUID 1,000 ML BOT RTH SCH (12:00)
[2020-11-19 12:06] LABS: Arterial Blood Carboxyhemoglob 1.3 % (0-1.5); Blood Gas Oxyhemoglobin 90.1 % (94-97); Blood O2 Saturation 92.2 % (92-98.5)
[2020-11-19 13:58] LABS: Hematocrit 33.7 % (36.0-45.0)
--- NOTE | 2020-11-19 14:02 | RAD REPORT ---
EXAM DESCRIPTION: RAD - Chest Single View - 11/19/2020 1:50 pm CLINICAL HISTORY: Follow up COVID, Suspect CHF COMPARISON: November 19 0508 hour examination TECHNIQUE: AP portable chest image was obtained 11/19/2020 1:50 pm . FINDINGS: No new tube or line identifiable. Cardiac leads overlie the chest. Rotation continues to e xaggerate the mediastinal silhouette. Right hemidiaphragm elevation is still present. No new or progressive lung parenchymal process. Heart size and vasculature are in the normal range. N o significant edema changes are seen in the lung [place]. No measurable pleural effusion and no pneumothorax. No acute bony abnormality seen. No acute aortic findings suspected. IMPRESSION: No new or progressive cardiopulmonary finding. Examination is stable from the study performed earlier in the day.
[2020-11-19 14:37] LABS: Transferrin 231 mg/dL (200-360)
[2020-11-19] MEDS: ENOXAPARIN 40 MG/0.4 ML SQ SCH (16:32)
--- NOTE | 2020-11-19 19:06 | RAD REPORT ---
EXAM DESCRIPTION: RAD - Abdomen 1 View (KUB) - 11/19/2020 7:00 pm CLINICAL HISTORY: Device placement Dobhoff tube placement FINDINGS: The tip of a Dobhoff tube lies within the gastric fundus
[2020-11-20] MEDS ORDERED: LORazepam 2 MG/ML VIAL IV ONE (01:36)
[2020-11-20 04:23] LABS: Absolute Lymphocytes (CBC) 0.2 K/uL (0.7-4.9); Basophils % 0.6 % (0-1.3); Hematocrit 25.1 % (36.0-45.0); Lymphocytes % 1.8 % (15.3-44.8); MPV 11.9 fL (7.6-11.3); RBC Red Blood Cell Count 2.83 M/uL (3.86-4.86)
[2020-11-20 04:45] LABS: Bilirubin Total 1.1 mg/dL (0.2-1.0); C-Reactive Protein 18.7 mg/L (<3.00); Ferritin 249.8 ng/mL (8-388); Magnesium 2.3 mg/dL (1.8-2.4); Protein, Total 6.1 g/dL (6.4-8.2)
[2020-11-20 04:48] LABS: Potassium 2.8 mmol/L (3.5-5.1)
[2020-11-20] MEDS: KCL 20 MEQ/100 mL IVPB 20 MEQ/100 ML BAG IV SCH ×3 (05:11→10:04)
[2020-11-20] MEDS: LEVOTHYROXINE SODIUM 100 MCG VIAL IV SCH (05:51)
[2020-11-20] MEDS: METOPROLOL TARTRATE 5 MG/5 ML INJ IV PRN (06:16)
--- NOTE | 2020-11-20 06:19 | P.PN ---
Subjective Date of Service: 11/20/20 Chief Complaint: COVID-19 pneumonia; atrial fibrillation; non ST-elevation [place] Subjective: Other (Patient on BiPAP.) Physical Examination - Vital Signs Temperature: 98 F Blood Pressure: 167/95 Pulse: 111 Respirations: 18 Pulse Ox (%): 92 - Studies Laboratory Data (last 24 hrs) 11/20/20 : Potassium Cancelled 11/20/20 07:00: Potassium Cancelled 11/20/20 03:33: Sodium 147 H, Potassium 2.8 L*, BUN 32 H, Creatinine 0.68, Glucose 182 H, Magnesium 2.3, Total Bilirubin 1.1 H, AST 55 H, ALT 56, Alkaline Phosphatase 63 11/20/20 03:33: WBC 13.50 H, Hgb 8.3 L D, Hct 25.1 L D, Plt Count 211 11/19/20 13:19: Hgb 10.9 L D, Hct 33.7 L D 11/19/20 08:06: Sodium 147 H, Potassium 3.0 L, BUN 30 H, Creatinine 0.62, Glucose 166 H Microbiology Data (last 24 hrs): 11/18/20 17:34 Blood - Blood Anaerobic Blood Culture - Final 11/18/20 17:42 Blood - Blood Anaerobic Blood Culture - Final Assessment & Plan Discharge Plan: Home Plan to discharge in: Greater than 2 days Physician Review Additional Text: COVID: Positive CT head: COMPARISON: HEAD BRAIN W O CONTRAST dated 09/14/2011 TECHNIQUE: All CT scans are performed using dose optimization technique as appr opriate and may include automated exposure control or mA/KV adjustment according to patient size. FINDINGS: No intracranial hemorrhage, hydrocephalus or extra-axial fluid collection.Mild periventricular chronic microvascular ischemic changes.No areas of brain edema or evidence of midline shift. The paranasal sinuses and mastoids are clear. The calvarium is intact. IMPRESSION: No acute intracranial abnormality. CXR: COMPARISON: Chest Pa And Lat (2 Views) dated 03/21/2018; Chest Pa And Lat (2 Views) dated 10/02/2016; CHEST PA AND LAT 2 VIEW dated 05/16/2012; CHEST SINGLE VIEW dated 09/14/2011 FINDINGS: Portable technique limits examination quality. Moderate elevation of the right hemidiaphragm noted, chronic. Moderate patchy bilateral alveolar lung opacities are seen likely representing bilateral pneumonia. Fullness in the right peritracheal stripe region is likely attributable portable technique and mild rotation of the patient, however CT chest followup would be useful for further evaluation. Cardiac size is normal. Breast US: COMPARISON: None FINDINGS: Retroareolar and four-quadrant whole right breast sonography performed. The examination was limited. The patient was unable to fully cooperate with the examination. In the retroareolar region of the right breast a 4-5 centimeter area of heterogeneous mostly hypoechoic tissue is seen. This is not a typical appearance for the retroareolar tissues. A clearly defined mass or drainable fluid collection was not seen. Currently the findings are nonspecific. Infectious/inflammatory process is most likely. This does not currently appear to be a drainable collection. Breast malignant etiology cannot be excluded. IMPRESSION: Nonspecific 4-5 cm area of heterogeneous hypoechoic tissue retroareolar right breast. Infectious/inflammatory etiology is favored. Breast malignancy etiology cannot be excluded. A drainable fluid collection is not currently identified. Follow up CXR 11/20/2020: COMPARISON: Abdomen 1 View (KUB) dated 11/19/2020; Chest Single View dated 11/19/2020; Chest Single View dated 11/19/2020; Chest Single View dated 11/16/2020 FINDINGS: Lines: None. Lungs: No evidence of edema or pneumonia. Elevated right hemidiaphragm. Pleural: No significant pleural effusions or pneumothorax. Cardiac: The heart size is within normal limits. Bones: No acute fractures. Other: IMPRESSION: Similar elevated right hemidiaphragm. No definite acute process identified . ECHO: MEASUREMENTS (cm) DIASTOLIC (NORMALS) SYSTOLIC (NORMALS) IVSd (0.6-1.2) LA Diam (1.9- 4.0) LVEF 55-60% LVIDd (3.5-5.7) LVIDs (2.0-3.5) %FS % LVPWd (0.6-1.2) Ao Diam (2.0-3.7) 2 DIMENSIONAL ASSESSMENT: RIGHT ATRIUM: LEFT ATRIUM: RIGHT VENTRICLE: LEFT VENTRICLE: TRICUSPID VALVE: MITRAL VALVE: PULMONIC VALVE: AORTIC VALVE: PERICARDIAL EFFUSION: AORTIC ROOT: LEFT VENTRICULAR WALL MOTION: LIMITED STUDY. DOPPLER/COLOR FLOW: COMMENTS: VERY LIMITED STUDY. OVERALL LEFT VENTRICULAR EJECTION FRACTION APPEARS NORMAL 55-60%. MILD TRICUSPID AND MITRAL REGURGITATION. Physical Exam: GENERAL: Patient remains altered. Not oriented to time and place. VITAL SIGNS: Reviewed HEENT: Neck supple LUNGS: Currently on BiPAP. HEART: A. fib rate controlled ABDOMEN: Soft, nontender, and nondistended. Positive bowel sounds. No hepatosplenomegaly was noted. EXTREMITIES: Without any cyanosis, clubbing, rash, lesions or peripheral edema. NEUROLOGIC: Patient remains with altered mental status SKIN: Normal color, turgor and temperature. No ulcerations or rashes noted. Impression: Acute encephalopathy suspect Covid encephalopathy complicated with Covid pneumonia with hypoxia Atrial fibrillation with RVR Elevated troponin likely ischemic demand Hypertension Hypothyroidism History of lung cancer Hypernatremia Right breast ecchymosis Leukocytosis likely related to above Acute anemia etiology unknown Plan: Acute encephalopathy suspect Covid encephalopathy complicated with Covid pneumon ia with hypoxia: Patient remains confused. Patient required BiPAP overnight. Currently on BiPAP at this time. Dobbhoff ordered to start nutrition. Continue IV steroids and treatment. Patient on IV Rocephin. Will discuss with pulmonology and cardiology concerning plan of care. Atrial fibrillation with RVR: We will increase metoprolol for better control. I V metoprolol provided. Patient remains on Lovenox. Elevated troponin likely ischemic demand: Patient seen and evaluated by cardiology. Patient to get echocardiogram. Consider outpatient versus inpatient cardiac stress test once medically stable. Hypertension: Increase metoprolol Hypothyroidism: Continue levothyroxine History of lung cancer: Overall stable. Hypernatremia: Continue D5W. Will monitor and adjust IV fluids. Right breast ecchymosis: Ultrasound shows nonspecific 4 x 5 cm heterogeneous hypoechoic tissue to the right breast. No drainable fluid noted. Monitor this closely. Leukocytosis likely related to above: Continue with above plan of care. Patient on Rocephin to cover for opportunistic infection. Blood and urine culture obtained. Acute anemia etiology unknown: We will monitor hemoglobin. CODE STATUS: Full code DVT prophylaxis: Lovenox Advanced care [id number] minutes: Will discuss with family on plan of care. Time Spent Managing Pts Care (In Minutes): 55
--- NOTE | 2020-11-20 06:34 | PN ---
Date of Progress Note: 11/18/2020 The patient was seen by Dr. Bay on 11/16/2020 for elevated troponin, possibly secondary to demand ischemia. An echocardiogram which was done on 11/18/2020 showed normal ejection fraction. No wall m otion abnormalities. No effusion. Again, this is consistent with demand ischemia. The patient is i n atrial fibrillation at a rate of 91. O2 saturation of 96% on room air. Normal blood pressure. He r last potassium was 2.6 that needs to be corrected. Her creatinine is 0.82. Her present regimen in cludes Xarelto and beta-blockers. Digoxin conservatively added for better rate control, anticoagulat e. Continue present regimen or follow as needed. ZURDO/DHRUVL Voice ID: [id number] Report ID: [id number]
[2020-11-20] MEDS: D5W 1,000 ML IV SCH (07:57)
[2020-11-20] MEDS: THIAMINE 200 MG/2 ML INJ IVP SCH ×2 (08:00→19:55)
[2020-11-20] MEDS: PANTOPRAZOLE 40 MG INJ IVP SCH (08:00)
[2020-11-20] MEDS: ASPIRIN EC 81 MG TAB PO SCH (08:00)
[2020-11-20] MEDS: CEFTRIAXONE 1 GM/NS 50 ML 1 GM/50 ML BAG IV SCH (08:00)
[2020-11-20] MEDS: METHYLPREDNISOLONE 40 MG INJ IV SCH ×2 (08:00→19:55)
[2020-11-20] MEDS: METOPROLOL TAR 50 MG TAB PO SCH ×2 (08:01→19:56)
--- NOTE | 2020-11-20 08:01 | RAD REPORT ---
EXAM DESCRIPTION: RAD - Chest Single View - 11/20/2020 6:23 am CLINICAL HISTORY: increase 02 requirement COMPARISON: Abdomen 1 View (KUB) dated 11/19/2020; Chest Single View dated 11/19/2020; Chest Single Vi ew dated 11/19/2020; Chest Single View dated 11/16/2020 FINDINGS: Lines: None. Lungs: No evidence of edema or pneumonia. Elevated right hemidiaphragm. Pleural: No significant pleural effusions or pneumothorax. Cardiac: The heart size is within normal limits. Bones: No acute fractures. Other: IMPRESSION: Similar elevated right hemidiaphragm. No definite acute process identified .
[2020-11-20] MEDS: FOLIC ACID 1 MG in NA CHLORIDE 0.9% 50 ML IV SCH (09:02)
[2020-11-20] MEDS ORDERED: THIAMINE 200 MG/2 ML INJ IVP SCH (11:29)
--- NOTE | 2020-11-20 11:31 | P.PN ---
Subjective Date of Service: 11/20/20 Chief Complaint: COVID-19 pneumonia; atrial fibrillation; non ST-elevation [place] Much better on BIPAP/ Unresponsive Review of Systems is unable to be obtained Physical Examination - Vital Signs Temperature: 97.3 F Blood Pressure: 175/88 Pulse: 116 Respirations: 28 Pulse Ox (%): 90 - Physical Exam General: Unresponsive - Studies Laboratory Data (last 24 hrs) 11/20/20 : Potassium Cancelled 11/20/20 07:00: Potassium Cancelled 11/20/20 03:33: Sodium 147 H, Potassium 2.8 L*, BUN 32 H, Creatinine 0.68, Glucose 182 H, Magnesium 2.3, Total Bilirubin 1.1 H, AST 55 H, ALT 56, Alkaline Phosphatase 63 11/20/20 03:33: WBC 13.50 H, Hgb 8.3 L D, Hct 25.1 L D, Plt Count 211 11/19/20 13:19: Hgb 10.9 L D, Hct 33.7 L D Microbiology Data (last 24 hrs): 11/18/20 17:34 Blood - Blood Anaerobic Blood Culture - Final 11/18/20 17:42 Blood - Blood Anaerobic Blood Culture - Final Assessment & Plan - Problems (Diagnosis) (1) Pneumonia due to COVID-19 virus Current Visit: Yes Status: Acute Plan: COVID encepahloapthy and resp failure better onBIPAP/ Try Dobhoff again otherwise consider PTN/ minimal change on CXRY/ Add Thiamin and reduce dose of steroids Physician Review: Patient Assessed, Agree with Above Assessment and Plan
--- NOTE | 2020-11-20 16:15 | RAD REPORT ---
EXAM DESCRIPTION: RAD - Abdomen 1 View (KUB) - 11/20/2020 4:06 pm CLINICAL HISTORY: Left nare Dobhoff placement Pain COMPARISON: Abdomen 1 View (KUB) dated 11/19/2020 FINDINGS: Tip of the enteric tube is in the stomach.
[2020-11-20] MEDS: ENOXAPARIN 80 MG/0.8 ML SQ SCH (19:59)
[2020-11-21] MEDS ORDERED: METOPROLOL TARTRATE 5 MG/5 ML INJ IV STA (00:42)
[2020-11-21] MEDS: D5W 1,000 ML IV SCH ×2 (03:03→14:30)
[2020-11-21 05:34] LABS: Albumin 3.1 g/dL (3.4-5.0); Bilirubin Total 1.1 mg/dL (0.2-1.0); C-Reactive Protein 10.8 mg/L (<3.00); Ferritin 234.6 ng/mL (8-388); Magnesium 2.4 mg/dL (1.8-2.4); Potassium 3.3 mmol/L (3.5-5.1); Protein, Total 6.7 g/dL (6.4-8.2)
[2020-11-21 05:55] LABS: Absolute Lymphocytes (CBC) 0.3 K/uL (0.7-4.9); Basophils % 0.3 % (0-1.3); Hematocrit 28.3 % (36.0-45.0); Lymphocytes % 1.7 % (15.3-44.8); MPV 12.1 fL (7.6-11.3); RBC Red Blood Cell Count 3.17 M/uL (3.86-4.86)
[2020-11-21] MEDS: LEVOTHYROXINE SODIUM 100 MCG VIAL IV SCH (06:00)
--- NOTE | 2020-11-21 06:12 | P.PN ---
Subjective Date of Service: 11/21/20 Chief Complaint: COVID-19 pneumonia; atrial fibrillation; non ST-elevation [place] Subjective: Other (Patient remains on BiPAP. Still with some confusion) Physical Examination - Vital Signs Temperature: 97 F Blood Pressure: 149/69 Pulse: 105 Respirations: 18 Pulse Ox (%): 96 - Studies Laboratory Data (last 24 hrs) 11/21/20 04:13: Sodium 144, Potassium 3.3 L, BUN 37 H, Creatinine 0.74, Glucose 198 H, Magnesium 2.4, Total Bilirubin 1.1 H, AST 38 H, ALT 54, Alkaline Phosphatase 70 11/20/20 12:26: Potassium 4.1 Assessment & Plan Discharge Plan: Home Plan to discharge in: Greater than 2 days Physician Review Additional Text: COVID: Positive CT head: COMPARISON: HEAD BRAIN W O CONTRAST dated 09/14/2011 TECHNIQUE: All CT scans are performed using dose optimization technique as appropriate and may include automated exposure control or mA/KV adjustment according to patient size. FINDINGS: No intracranial hemorrhage, hydrocephalus or extra-axial fluid collection.Mild periventricular chronic microvascular ischemic changes.No areas of brain edema or evidence of midline shift. The paranasal sinuses and mastoids are clear. The calvarium is intact. IMPRESSION: No acute intracranial abnormality. CXR: COMPARISON: Chest Pa And Lat (2 Views) dated 03/21/2018; Chest Pa And Lat (2 Views) dated 10/02/2016; CHEST PA AND LAT 2 VIEW dated 05/16/2012; CHEST SINGLE VIEW dated 09/14/2011 FINDINGS: Portable technique limits examination quality. Moderate elevation of the right hemidiaphragm noted, chronic. Moderate patchy bilateral alveolar lung opacities are seen likely representing bilateral pneumonia. Fullness in the right peritracheal stripe region is likely attributable portable technique and mild rotation of the patient, however CT chest followup would be useful for further evaluation. Cardiac size is normal. Breast US: COMPARISON: None FINDINGS: Retroareolar and four-quadrant whole right breast sonography performed. The examination was limited. The patient was unable to fully cooperate with the examination. In the retroareolar region of the right breast a 4-5 centimeter area of heterogeneous mostly hypoechoic tissue is seen. This is not a typical appearance for the retroareolar tissues. A clearly defined mass or drainable fluid collection was not seen. Currently the findings are nonspecific. Infectious/inflammatory process is most likely. This does not currently appear to be a drainable collection. Breast malignant etiology cannot be excluded. IMPRESSION: Nonspecific 4-5 cm area of heterogeneous hypoechoic tissue retroareolar right breast. Infectious/inflammatory etiology is favored. Breast malignancy etiology cannot be excluded. A drainable fluid collection is not currently identified. Follow up CXR 11/20/2020: COMPARISON: Abdomen 1 View (KUB) dated 11/19/2020; Chest Single View dated 11/19/2020; Chest Single View dated 11/19/2020; Chest Single View dated 11/16/2020 FINDINGS: Lines: None. Lungs: No evidence of edema or pneumonia. Elevated right hemidiaphragm. Pleural: No significant pleural effusions or pneumothorax. Cardiac: The heart size is within normal limits. Bones: No acute fractures. Other: IMPRESSION: Similar elevated right hemidiaphragm. No definite acute process identified . ECHO: MEASUREMENTS (cm) DIASTOLIC (NORMALS) SYSTOLIC (NORMALS) IVSd (0.6-1.2) LA Diam (1.9- 4.0) LVEF 55-60% LVIDd (3.5-5.7) LVIDs (2.0-3.5) %FS % LVPWd (0.6-1.2) Ao Diam (2.0-3.7) 2 DIMENSIONAL ASSESSMENT: RIGHT ATRIUM: LEFT ATRIUM: RIGHT VENTRICLE: LEFT VENTRICLE: TRICUSPID VALVE: MITRAL VALVE: PULMONIC VALVE: AORTIC VALVE: PERICARDIAL EFFUSION: AORTIC ROOT: LEFT VENTRICULAR WALL MOTION: LIMITED STUDY. DOPPLER/COLOR FLOW: COMMENTS: VERY LIMITED STUDY. OVERALL LEFT VENTRICULAR EJECTION FRACTION APPEARS NORMAL 55-60%. MILD TRICUSPID AND MITRAL REGURGITATION. Physical Exam: GENERAL: Still with some confusion. VITAL SIGNS: Reviewed HEENT: Neck supple LUNGS: Currently on BiPAP. HEART: A. fib rate controlled ABDOMEN: Soft, nontender, and nondistended. Positive bowel sounds. No hepatosplenomegaly was noted. EXTREMITIES: Without any cyanosis, clubbing, rash, lesions or peripheral edema. NEUROLOGIC: Patient remains with altered mental status SKIN: Normal color, turgor and temperature. No ulcerations or rashes noted. Impression: Acute encephalopathy suspect Covid encephalopathy complicated with Covid pneumonia with hypoxia Atrial fibrillation with RVR Elevated troponin likely ischemic demand Hypertension Hypothyroidism History of lung cancer Hypernatremia Right breast ecchymosis Leukocytosis likely related to above Acute anemia etiology unknown Plan: Acute encephalopathy suspect Covid encephalopathy complicated with Covid pneumonia with hypoxia: Patient still with some confusion. Patient on BiPAP. Dobbhoff was placed last night. Then this afternoon patient pulled Dobbhoff. Will need to start PPN for nutrition. Continue IV steroids. Continue Rocephin. Add Diflucan for leukocytosis to cover for opportunistic infection. Continue with pulmonology recommendations. Will discuss with family. Atrial fibrillation with RVR: Continue metoprolol for better control. IV metoprolol provided. Patient remains on Lovenox. Elevated troponin likely ischemic demand: Patient seen and evaluated by cardiology. Patient to get echocardiogram. Consider outpatient versus inpatient cardiac stress test once medically stable. Hypertension: Increase metoprolol Hypothyroidism: Continue levothyroxine History of lung cancer: Overall stable. Hypernatremia: Continue D5W. Will monitor and adjust IV fluids. Right breast ecchymosis: Ultrasound shows nonspecific 4 x 5 cm heterogeneous hypoechoic tissue to the right breast. No drainable fluid noted. Monitor this closely. Leukocytosis likely related to above: Continue with above plan of care. Patient now on Rocephin and Diflucan Acute anemia etiology unknown: Will monitor hemoglobin. CODE STATUS: Full code DVT prophylaxis: Lovenox Advanced care [id number] minutes: Continue with above plan of care. Time Spent Managing Pts Care (In Minutes): 55
[2020-11-21] MEDS: ENOXAPARIN 80 MG/0.8 ML SQ SCH ×2 (08:05→20:25)
[2020-11-21] MEDS: METOPROLOL TAR 50 MG TAB PO SCH ×2 (08:06→20:26)
[2020-11-21 08:07] LABS: Blood Morphology Comment NOT SEEN (NOT SEEN); Platelet Estimate ADEQ; Platelets, Giant FEW
[2020-11-21] MEDS: METHYLPREDNISOLONE 40 MG INJ IV SCH ×2 (08:07→20:26)
[2020-11-21] MEDS: CEFTRIAXONE 1 GM/NS 50 ML 1 GM/50 ML BAG IV SCH (08:07)
[2020-11-21] MEDS: THIAMINE 200 MG/2 ML INJ IVP SCH ×2 (08:07→20:26)
[2020-11-21] MEDS: PANTOPRAZOLE 40 MG INJ IVP SCH (08:07)
[2020-11-21] MEDS: ASPIRIN EC 81 MG TAB PO SCH (08:07)
[2020-11-21] MEDS: KCL 20 MEQ/100 mL IVPB 20 MEQ/100 ML BAG IV SCH ×4 (08:08→10:54)
[2020-11-21] MEDS: FOLIC ACID 1 MG in NA CHLORIDE 0.9% 50 ML IV SCH (09:01)
[2020-11-21] MEDS: MORPHINE 2 MG/ML SYR IV PRN ×2 (10:40→19:45)
[2020-11-21] MEDS: ZIPRASIDONE MESYLA 20 MG/VIAL IM PRN (12:15)
[2020-11-21] MEDS: HALOPERIDOL LACT 5 MG/ML INJ IV PRN ×2 (12:50→20:48)
[2020-11-21] MEDS: FLUCONAZOLE 100mg IVPB 100 MG/50 ML BAG IV SCH (14:40)
[2020-11-21] MEDS ORDERED: DEXTROSE 10%-WATER 500 ML IV SCH (16:00)
[2020-11-21] MEDS: METOPROLOL TARTRATE 5 MG/5 ML INJ IV PRN ×2 (17:04→20:26)
[2020-11-21] MEDS: AA 4.25 %/D5W/ELECTROLYTES 2,000 ML, Lipids 20% 250 ML with MULTIVITAMINS INJ 10 ML IV SCH ×3 (18:09)
[2020-11-21] MEDS ORDERED: LORazepam 2 MG/ML VIAL IV ONE (22:54)
[2020-11-22] MEDS: LORazepam 2 MG/ML VIAL IV PRN ×3 (06:07→22:04)
--- NOTE | 2020-11-22 06:33 | P.PN ---
Subjective Date of Service: 11/22/20 Chief Complaint: COVID-19 pneumonia; atrial fibrillation; non ST-elevation CT Subjective: Other (Overall unchanged) Physical Examination - Vital Signs Temperature: 97.7 F Blood Pressure: 151/77 Pulse: 99 Respirations: 18 Pulse Ox (%): 100 - Studies Laboratory Data (last 24 hrs) 11/21/20 07:10: Potassium 3.5 11/21/20 04:13: WBC 17.00 H D, Hgb 9.1 L, Hct 28.3 L, Plt Count 246 Assessment & Plan Discharge Plan: Home Plan to discharge in: Greater than 2 days Physician Review Additional Text: COVID: Positive CT head: COMPARISON: HEAD BRAIN W O CONTRAST dated 09/14/2011 TECHNIQUE: All CT scans are performed using dose optimization technique as appropriate and may include automated exposure control or mA/KV adjustment according to patient size. FINDINGS: No intracranial hemorrhage, hydrocephalus or extra-axial fluid collection.Mild periventricular chronic microvascular ischemic changes.No areas of brain edema or evidence of midline shift. The paranasal sinuses and mastoids are clear. The calvarium is intact. IMPRESSION: No acute intracranial abnormality. CXR: COMPARISON: Chest Pa And Lat (2 Views) dated 03/21/2018; Chest Pa And Lat (2 Views) dated 10/02/2016; CHEST PA AND LAT 2 VIEW dated 05/16/2012; CHEST SINGLE VIEW dated 09/14/2011 FINDINGS: Portable technique limits examination quality. Moderate elevation of the right hemidiaphragm noted, chronic. Moderate patchy bilateral alveolar lung opacities are seen likely representing bilateral pneumonia. Fullness in the right peritracheal stripe region is likely attributable portable technique and mild rotation of the patient, however CT chest followup would be useful for further evaluation. Cardiac size is normal. Breast US: COMPARISON: None FINDINGS: Retroareolar and four-quadrant whole right breast sonography performed. The examination was limited. The patient was unable to fully cooperate with the examination. In the retroareolar region of the right breast a 4-5 centimeter area of heterogeneous mostly hypoechoic tissue is seen. This is not a typical appearance for the retroareolar tissues. A clearly defined mass or drainable fluid collection was not seen. Currently the findings are nonspecific. Infectious/inflammatory process is most likely. This does not currently appear to be a drainable collection. Breast malignant etiology cannot be excluded. IMPRESSION: Nonspecific 4-5 cm area of heterogeneous hypoechoic tissue retroareolar right breast. Infectious/inflammatory etiology is favored. Breast malignancy etiology cannot be excluded. A drainable fluid collection is not currently identified. Follow up CXR 11/20/2020: COMPARISON: Abdomen 1 View (KUB) dated 11/19/2020; Chest Single View dated 11/19/2020; Chest Single View dated 11/19/2020; Chest Single View dated 11/16/2020 FINDINGS: Lines: None. Lungs: No evidence of edema or pneumonia. Elevated right hemidiaphragm. Pleural: No significant pleural effusions or pneumothorax. Cardiac: The heart size is within normal limits. Bones: No acute fractures. Other: IMPRESSION: Similar elevated right hemidiaphragm. No definite acute process identified . ECHO: MEASUREMENTS (cm) DIASTOLIC (NORMALS) SYSTOLIC (NORMALS) IVSd (0.6-1.2) LA Diam (1.9- 4.0) LVEF 55-60% LVIDd (3.5-5.7) LVIDs (2.0-3.5) %FS % LVPWd (0.6-1.2) Ao Diam (2.0-3.7) 2 DIMENSIONAL ASSESSMENT: RIGHT ATRIUM: LEFT ATRIUM: RIGHT VENTRICLE: LEFT VENTRICLE: TRICUSPID VALVE: MITRAL VALVE: PULMONIC VALVE: AORTIC VALVE: PERICARDIAL EFFUSION: AORTIC ROOT: LEFT VENTRICULAR WALL MOTION: LIMITED STUDY. DOPPLER/COLOR FLOW: COMMENTS: VERY LIMITED STUDY. OVERALL LEFT VENTRICULAR EJECTION FRACTION APPEARS NORMAL 55-60%. MILD TRICUSPID AND MITRAL REGURGITATION. Physical Exam: GENERAL: Still with some confusion. VITAL SIGNS: Reviewed HEENT: Neck supple LUNGS: Patient currently on 3 L. HEART: A. fib rate controlled ABDOMEN: Soft, nontender, and nondistended. Positive bowel sounds. No hepatosplenomegaly was noted. EXTREMITIES: Without any cyanosis, clubbing, rash, lesions or peripheral edema. NEUROLOGIC: Patient remains with altered mental status SKIN: Normal color, turgor and temperature. No ulcerations or rashes noted. Impression: Acute encephalopathy suspect Covid encephalopathy complicated with Covid pneumonia with hypoxia Atrial fibrillation with RVR Elevated troponin likely ischemic demand Hypertension Hypothyroidism History of lung cancer Hypernatremia Right breast ecchymosis Leukocytosis likely related to above Acute anemia etiology unknown Plan: Acute encephalopathy suspect Covid encephalopathy complicated with Covid pneumonia with hypoxia: Patient still confused. Nurse to reassess swallowing today. Will order speech to assess. If this is not successful will need to consider PPN. Continue IV steroids. Continue Rocephin and Diflucan. Await recommendations by pulmonology. Atrial fibrillation with RVR: Continue metoprolol for better control. IV metoprolol provided. Patient remains on Lovenox. Elevated troponin likely ischemic demand: Patient seen and evaluated by cardiology. Patient to get echocardiogram. Consider outpatient versus inpatient cardiac stress test once medically stable. Hypertension: Increase metoprolol Hypothyroidism: Continue levothyroxine History of lung cancer: Overall stable. Hypernatremia: Continue D5W. Will monitor and adjust IV fluids. Right breast ecchymosis: Ultrasound shows nonspecific 4 x 5 cm heterogeneous hypoechoic tissue to the right breast. No drainable fluid noted. Monitor this closely. Leukocytosis likely related to above: Continue with above plan of care. Patient now on Rocephin and Diflucan Acute anemia etiology unknown: Will monitor hemoglobin. CODE STATUS: Full code DVT prophylaxis: Lovenox Advanced care minutes: Continue with above plan of care. Time Spent Managing Pts Care (In Minutes): 55
--- NOTE | 2020-11-22 07:11 | RAD REPORT ---
EXAM DESCRIPTION: RAD - Chest Single View - 11/22/2020 7:00 am CLINICAL HISTORY: follow up COVID COMPARISON: Abdomen 1 View (KUB) dated 11/20/2020; Chest Single View dated 11/20/2020; Abdomen 1 View (KUB) dated 11/19/2020; Chest Single View dated 11/19/2020 FINDINGS: Lines: None. Lungs: Similar elevated right hemidiaphragm with low lung volumes. Mild increased opacities at the le ft lung base noted. There is increased patient rotation . Pleural: No significant pleural effusions or pneumothorax. Cardiac: The heart size is within normal limits. Bones: No acute fractures. Other: IMPRESSION: Mild increased left basilar opacities could reflect changes in positioning versus atelec tasis and/or pneumonia.
[2020-11-22 07:47] LABS: Absolute Lymphocytes (CBC) 0.4 K/uL (0.7-4.9); Basophils % 0.2 % (0-1.3); Hematocrit 28.1 % (36.0-45.0); Lymphocytes % 2.2 % (15.3-44.8); MPV 12.1 fL (7.6-11.3); RBC Red Blood Cell Count 3.11 M/uL (3.86-4.86)
[2020-11-22 08:30] LABS: ALT/SGPT 46 U/L (12-78); AST/SGOT 32 U/L (15-37); Albumin 2.7 g/dL (3.4-5.0); Alkaline Phosphatase 65 U/L (45-117); BUN Blood Urea Nitrogen 36 mg/dL (7-18); Bicarbonate 34 mmol/L (21-32); Bilirubin Total 0.8 mg/dL (0.2-1.0); C-Reactive Protein 4.67 mg/L (<3.00); Ferritin 203.5 ng/mL (8-388); Glucose Level 187 mg/dL (74-106); Magnesium 2.6 mg/dL (1.8-2.4); Potassium 4.7 mmol/L (3.5-5.1); Protein, Total 5.9 g/dL (6.4-8.2); Sodium Level 141 mmol/L (136-145)
[2020-11-22] MEDS: PANTOPRAZOLE 40 MG INJ IVP SCH (08:31)
[2020-11-22] MEDS: CEFTRIAXONE 1 GM/NS 50 ML 1 GM/50 ML BAG IV SCH (08:32)
[2020-11-22] MEDS: ENOXAPARIN 80 MG/0.8 ML SQ SCH ×2 (08:32→20:04)
[2020-11-22] MEDS: METHYLPREDNISOLONE 40 MG INJ IV SCH (08:32)
[2020-11-22] MEDS: THIAMINE 200 MG/2 ML INJ IVP SCH ×2 (08:32→20:03)
[2020-11-22] MEDS: METOPROLOL TAR 50 MG TAB PO SCH ×2 (08:33→20:04)
[2020-11-22] MEDS: ASPIRIN EC 81 MG TAB PO SCH (08:34)
[2020-11-22] MEDS: LEVOTHYROXINE SODIUM 100 MCG VIAL IV SCH (08:38)
[2020-11-22] MEDS: FOLIC ACID 1 MG in NA CHLORIDE 0.9% 50 ML IV SCH (08:56)
[2020-11-22] MEDS: FLUCONAZOLE 100mg IVPB 100 MG/50 ML BAG IV SCH (13:18)
--- NOTE | 2020-11-22 13:57 | P.PN ---
Subjective Date of Service: 11/22/20 Chief Complaint: COVID-19 pneumonia; atrial fibrillation; non ST-elevation [place] Not doingwell bettr onBIPAP/ OnTPN unresponsive Review of Systems is unable to be obtained Physical Examination - Vital Signs Temperature: 97.2 F Blood Pressure: 155/67 Pulse: 116 Respirations: 20 Pulse Ox (%): 100 - Physical Exam General: Delirious, Unresponsive - Studies Laboratory Data (last 24 hrs) 11/22/20 07:11: Sodium 141, Potassium 4.7, BUN 36 H, Creatinine 0.55, Glucose 187 H, Magnesium 2.6 H, Total Bilirubin 0.8, AST 32, ALT 46, Alkaline Phosphatase 65 11/22/20 07:11: WBC 18.50 H, Hgb 9.3 L, Hct 28.1 L, Plt Count 223 Assessment & Plan - Problems (Diagnosis) (1) Pneumonia due to COVID-19 virus Current Visit: Yes Status: Acute Plan: Resp failure on BIPAP andTPN/ not requiring much O2 / CXRy elevated r lindsay. reduce dose steroids Physician Review: Patient Assessed, Agree with Above Assessment and Plan
[2020-11-22] MEDS: AA 4.25 %/D5W/ELECTROLYTES 2,000 ML, Lipids 20% 250 ML with MULTIVITAMINS INJ 10 ML IV SCH ×3 (17:00)
[2020-11-22] MEDS ORDERED: AA 4.25 %/D5W/ELECTROLYTES 2,000 ML, Lipids 20% 250 ML with MULTIVITAMINS INJ 10 ML IV SCH ×3 (17:00)
[2020-11-22] MEDS ORDERED: DEXTROSE 10%-WATER 500 ML IV SCH (17:15)
[2020-11-22 17:57] VITALS: O2SAT 95
[2020-11-22] MEDS: METOPROLOL TARTRATE 5 MG/5 ML INJ IV PRN (20:02)
[2020-11-22] MEDS ORDERED: dexAMETHasone 4 MG/ML VIAL IV SCH (21:00)
[2020-11-23 00:59] VITALS: TEMP 98
--- NOTE | 2020-11-23 02:37 | P.PN ---
Date of Service: 11/23/20 Rapid response called, upon arrival to room nursing staff informing that patient saturations dropped to the 70s on BiPAP at 35% FiO2, respiratory is at bedside has adjusted FiO2 to 50% saturations have come up to the 90s. Initially staff difficulty obtaining blood pressure but after changing machine and cuff location blood pressure noted to be 119/59 patient in A. fib with rate between 115 and 130. Patient is with periods of confusion and attempts of pulling off her BiPAP. We will continue to monitor throughout the evening. At this time oxygenation is satisfactory on 50% Fi02 Bipap. Patient may require escalation of therapy/intubation/transfer to ICU if condition worsens.
[2020-11-23] MEDS ORDERED: NA CHLORIDE 0.9% 0 ML ONE (02:43)
[2020-11-23] MEDS ORDERED: ETOMIDATE 20 MG/10 ML VIAL IV ONE (04:05)
[2020-11-23] MEDS ORDERED: SUCCINYLCHOLINE 20 MG/ML (10 ML) IV ONE (04:05)
[2020-11-23] MEDS ORDERED: EPINEPHrine 1 MG/10 ML SYR IV ONE (04:05)
--- NOTE | 2020-11-23 04:30 | P.DS ---
Admission Date: 11/15/20 Discharge Date: 11/23/20 Disposition: Discharge Condition: Reason for Admission: COVID-19 pneumonia; atrial fibrillation; non ST-elevation NC Consultations: Pulmonology: Dr. Patterson Procedures: COVID: Positive CT head: COMPARISON: HEAD BRAIN W O CONTRAST dated 09/14/2011 TECHNIQUE: All CT scans are performed using dose optimization technique as appropriate and may include automated exposure control or mA/KV adjustment according to patient size. FINDINGS: No intracranial hemorrhage, hydrocephalus or extra-axial fluid collection.Mild periventricular chronic microvascular ischemic changes.No areas of brain edema or evidence of midline shift. The paranasal sinuses and mastoids are clear. The calvarium is intact. IMPRESSION: No acute intracranial abnormality. CXR: COMPARISON: Chest Pa And Lat (2 Views) dated 03/21/2018; Chest Pa And Lat (2 Views) dated 10/02/2016; CHEST PA AND LAT 2 VIEW dated 05/16/2012; CHEST SINGLE VIEW dated 09/14/2011 FINDINGS: Portable technique limits examination quality. Moderate elevation of the right hemidiaphragm noted, chronic. Moderate patchy bilateral alveolar lung opacities are seen likely representing bilateral pneumonia. Fullness in the right peritracheal stripe region is likely attributable portable technique and mild rotation of the patient, however CT chest followup would be useful for further evaluation. Cardiac size is normal. Breast US: COMPARISON: None FINDINGS: Retroareolar and four-quadrant whole right breast sonography performed. The examination was limited. The patient was unable to fully cooperate with the examination. In the retroareolar region of the right breast a 4-5 centimeter area of heterogeneous mostly hypoechoic tissue is seen. This is not a typical appearance for the retroareolar tissues. A clearly defined mass or drainable fluid collection was not seen. Currently the findings are nonspecific. Infectious/inflammatory process is most likely. This does not currently appear to be a drainable collection. Breast malignant etiology cannot be excluded. IMPRESSION: Nonspecific 4-5 cm area of heterogeneous hypoechoic tissue retroareolar right breast. Infectious/inflammatory etiology is favored. Breast malignancy etiology cannot be excluded. A drainable fluid collection is not currently identified. Follow up CXR 11/20/2020: COMPARISON: Abdomen 1 View (KUB) dated 11/19/2020; Chest Single View dated 11/19/2020; Chest Single View dated 11/19/2020; Chest Single View dated 11/16/2020 FINDINGS: Lines: None. Lungs: No evidence of edema or pneumonia. Elevated right hemidiaphragm. Pleural: No significant pleural effusions or pneumothorax. Cardiac: The heart size is within normal limits. Bones: No acute fractures. Other: IMPRESSION: Similar elevated right hemidiaphragm. No definite acute process identified . ECHO: MEASUREMENTS (cm) DIASTOLIC (NORMALS) SYSTOLIC (NORMALS) IVSd (0.6-1.2) LA Diam (1.9-4. 0) LVEF 55-60% LVIDd (3.5-5.7) LVIDs (2.0-3.5) %FS % LVPWd (0.6-1.2) Ao Diam (2.0-3.7) 2 DIMENSIONAL ASSESSMENT: RIGHT ATRIUM: LEFT ATRIUM: RIGHT VENTRICLE: LEFT VENTRICLE: TRICUSPID VALVE: MITRAL VALVE: PULMONIC VALVE: AORTIC VALVE: PERICARDIAL EFFUSION: AORTIC ROOT: LEFT VENTRICULAR WALL MOTION: LIMITED STUDY. DOPPLER/COLOR FLOW: COMMENTS: VERY LIMITED STUDY. OVERALL LEFT VENTRICULAR EJECTION FRACTION APPEARS NORMAL 55-60%. MILD TRICUSPID AND MITRAL REGURGITATION. Physical Exam: GENERAL: Still with some confusion. VITAL SIGNS: Reviewed HEENT: Neck supple LUNGS: Patient currently on 3 L. HEART: A. fib rate controlled ABDOMEN: Soft, nontender, and nondistended. Positive bowel sounds. No hepatosplenomegaly was noted. EXTREMITIES: Without any cyanosis, clubbing, rash, lesions or peripheral edema. NEUROLOGIC: Patient remains with altered mental status SKIN: Normal color, turgor and temperature. No ulcerations or rashes noted. Impression: Acute encephalopathy suspect Covid encephalopathy complicated with Covid pneumonia with hypoxia Atrial fibrillation with RVR Elevated troponin likely ischemic demand Hypertension Hypothyroidism History of lung cancer Hypernatremia Right breast ecchymosis Leukocytosis likely related to above Acute anemia etiology unknown Plan: Acute encephalopathy suspect Covid encephalopathy complicated with Covid pneumonia with hypoxia: Patient still confused. Nurse to reassess swallowing today. Will order speech to assess. If this is not successful will need to consider PPN. Continue IV steroids. Continue Rocephin and Diflucan. Await recommendations by pulmonology. Atrial fibrillation with RVR: Continue metoprolol for better control. IV metoprolol provided. Patient remains on Lovenox. Elevated troponin likely ischemic demand: Patient seen and evaluated by cardiology. Patient to get echocardiogram. Consider outpatient versus inpatient cardiac stress test once medically stable. Hypertension: Increase metoprolol Hypothyroidism: Continue levothyroxine History of lung cancer: Overall stable. Hypernatremia: Continue D5W. Will monitor and adjust IV fluids. Right breast ecchymosis: Ultrasound shows nonspecific 4 x 5 cm heterogeneous hypoechoic tissue to the right breast. No drainable fluid noted. Monitor this closely. Leukocytosis likely related to above: Continue with above plan of care. Patient now on Rocephin and Diflucan Acute anemia etiology unknown: Will monitor hemoglobin. Brief History of Present Illness: Patient is an 80-year-old female who was transferred from [facility] with COVID-19 pneumonia. Patient has gone into atrial fibrillation. Patient also with elevated troponin. They spoke with Cardiology and agreement to transfer patient to our hospital. Patient will continue on medication for rate control and continue with anti coagulation. At this time, will continue with steroids and supportive care with cough medication. Patient appears to be confused. Her baseline is that she is oriented to person place and time. Will need to get records from the hospital to see what her mentation has been altered. Hospital Course: Patient was received in transfer from [facility] on 11/15[facility]2020 for diagnosis of COVID-19 pneumonia with hypoxia. Patient was admitted to the Covid unit and treated with IV steroids, supplemental oxygen including nasal cannula, high flow and BiPAP throughout her admission. Patient was also treated with antibiotic Rocephin antifungal Diflucan. Patient had atrial fibrillation with rapid ventricular response and was on beta-blockers and Lovenox. Throughout patient's hospitalization she had periodic episodes of confusion. This evening patient was having worsening mental status as well as increased oxygen r equirement, rapid response was called and patient was evaluated, patient's BiPAP settings were adjusted but she continued to do poorly, patient was transferred to the intensive care unit and attempts were made to contact family multiple times and all listed phone numbers including cell phone numbers of sisters. After getting to the ICU mental status declined and saturations decreased into the 70s. ED provider was contacted for assistance with intubation which was performed with first-pass success, immediately after intubation patient converted to sinus rhythm from atrial fibrillation, carotid was palpated and there was no pulse. Patient with PEA, CODE BLUE called at 03:45. ACLS protocol followed, patient given 5 rounds of epinephrine, bicarb, patient maintained in PEA with decreasing rate. Many many attempts were made at contacting family including both sisters, brother, and home numbers unfortunately no family answered. Patient never regained pulse after code was initiated maintain PEA, case was discussed with hospitalist attending at time of need for transfer to ICU and pericode. Time of called 405. June she rest in peace. Vital Signs/Physical Exam: Temp Pulse Resp BP Pulse Ox 98.0 F 97 H 24 H 137/74 100 11/23/20 00:00 11/23/20 00:00 11/23/20 00:00 11/23/20 00:00 11/23/20 00:00 General: Unresponsive Neck: Other (No palpable carotid pulse) Cardiovascular: Other (No heart sounds on exam) Laboratory Data at Discharge: WBC 18.50 K/uL (4.3-10.9) H 11/22/20 07:11 Hgb 9.3 g/dL (12.0-15.0) L 11/22/20 07:11 Hct 28.1 % (36.0-45.0) L 11/22/20 07:11 Plt Count 223 K/uL (152-406) 11/22/20 07:11 Sodium 141 mmol/L (136-145) 11/22/20 07:11 Potassium 4.7 mmol/L (3.5-5.1) 11/22/20 07:11 BUN 36 mg/dL (7-18) H 11/22/20 07:11 Creatinine 0.55 mg/dL (0.55-1.3) 11/22/20 07:11 Glucose 187 mg/dL (74-106) H 11/22/20 07:11 Magnesium 2.6 mg/dL (1.8-2.4) H 11/22/20 07:11 Total Bilirubin 0.8 mg/dL (0.2-1.0) 11/22/20 07:11 AST 32 U/L (15-37) 11/22/20 07:11 ALT 46 U/L (12-78) 11/22/20 07:11 Alkaline Phosphatase 65 U/L (45-117) 11/22/20 07:11 Troponin I 0.37 ng/mL (0.0-0.045) H 11/16/20 05:40 Triglycerides 159 mg/dL (<150) H 11/16/20 05:40 Cholesterol 103 mg/dL (<200) 11/16/20 05:40 HDL Cholesterol 52 mg/dL (40-60) 11/16/20 05:40 Cholesterol/HDL Ratio 1.98 11/16/20 05:40 Home Medications: Amlodipine [Norvasc] 10 mg PO DAILY 11/15/20 Arformoterol Tartrate [Brovana] 15 mcg IH BID 11/15/20 Atorvastatin Calcium [Lipitor] 40 mg PO BEDTIME 11/15/20 Budesonide [Pulmicort] 2 puff IH BID 11/15/20 Hydrocodone 5/APAP 325 [[place] 5/325] 1 tab PO Q12HR PRN 11/15/20 Ipratropium/Albuterol Sulfate [Combivent Respimat 20-100 Mcg] 1 puff QID PRN 11/15/20 Levothyroxine Sodium [Synthroid] 75 mcg PO DAILY 11/15/20 Metoprolol Tartrate 50 mg PO DAILY 11/15/20 Montelukast [Singulair] 10 mg PO DAILY 11/15/20 Pantoprazole [Protonix Tab] 40 mg PO DAILY 11/15/20 Pregabalin [Lyrica] 100 mg PO TID 11/15/20 Rivaroxaban [Xarelto] 10 mg PO DAILY 11/15/20 Umeclidinium [place] [Incruse Ellipta] 1 puff DAILY 11/15/20 Physician Discharge Instructions: Rest in peace Time spent managing pt's care (in minutes): 55
[2020-11-23 05:16] VITALS: BP 75/65
[2020-11-23] MEDS ORDERED: AA 4.25 %/D5W/ELECTROLYTES 2,000 ML with MULTIVITAMINS INJ 10 ML IV SCH ×2 (17:00)
--- NOTE | 2020-11-23 22:14 | RAD REPORT ---
EXAM DESCRIPTION: RAD - Chest Single View - 11/23/2020 5:13 am CLINICAL HISTORY: The patient is 80 years old and is Female; Worsening resp. status TECHNIQUE: Frontal view of the chest. COMPARISON: Chest radiograph November 22, 2020 FINDINGS: LUNGS: Volume loss of the right lung is noted which may be postsurgical. The lungs are o therwise clear. PLEURAL SPACE: Unremarkable. No pneumothorax. HEART: Unremarkable. No cardiomegaly. MEDIASTINUM: Unremarkable. BONES/JOINTS: There are degenerative changes of the bones. UPPER ABDOMEN: Persistent elevation of the right hemidiaphragm is present. IMPRESSION: Persistent elevation right hemidiaphragm. No acute findings. Electronically signed by: Sonia Rosas MD 11/23/2020 5:26 AM CDT Due to temporary technical issues with the PACS/Fluency reporting system, reports are being signed by the in house radiologists without review as a courtesy to insure prompt reporting. The interpreting radiologist is fully responsible for the content of the report.
== END 2020-11-23 04:06 | disposition expired | DRG 177 ==
LOC: 4TH 18:36 → 3RD-ICU 11-23 03:11
PROVIDERS: ADMIT Hospitalist; ATTEND Hospitalist
PROC: 5A09457 Assistance with Respiratory Ventilation, 24-96 Consecutive Hours, Continuous Positive Airway Pressure (ICD-10-PCS; 2020-11-19)
PROC: 0BH17EZ Insertion of Endotracheal Airway into Trachea, Via Natural or Artificial Opening (ICD-10-PCS; principal; 2020-11-23)
DX: U07.1 COVID-19 (principal); J12.82 Pneumonia due to coronavirus disease 2019; J96.90 Respiratory failure, unspecified, unspecified whether with hypoxia or hypercapnia; G93.40 Encephalopathy, unspecified; I24.8 Other forms of acute ischemic heart disease; E87.0 Hyperosmolality and hypernatremia; E87.1 Hypo-osmolality and hyponatremia; J44.0 Chronic obstructive pulmonary disease with (acute) lower respiratory infection; N39.0 Urinary tract infection, site not specified; R09.02 Hypoxemia; R06.03 Acute respiratory distress; I48.91 Unspecified atrial fibrillation; I10 Essential (primary) hypertension; E03.9 Hypothyroidism, unspecified; R58 Hemorrhage, not elsewhere classified; D72.829 Elevated white blood cell count, unspecified; D64.9 Anemia, unspecified; Z85.118 Personal history of other malignant neoplasm of bronchus and lung
CPT/HCPCS: 36415; 70450; 71045; 74018; 76641; 80048; 80053; 80061; 81003; 81015; 82607; 82728; 82805; 82947; 83540; 83735; 84132; 84145; 84466; 84484; 85014; 85018; 85025; 85379; 86140; 87040; 92610; 93306; 94660; 94760; 94761; C9113; J0171; J0330; J0696; J1100; J1450; J1630; J1650; J1940; J2270; J2920; J3411; J3480; J3486; J7040